=== PATIENT | male | born 1950 | race Caucasian/White ===

== ENCOUNTER → 2023-08-23 07:16 | Outpatient (REF) | payer MEDICARE, OTHER, SELFPAY ==
[2023-08-23 08:56] LABS: % Basophils 0.9 % (0-2); % Eosinophils 4.3 % (0-6); % Immature Granulocytes 0.6 % (0-0.5); % Lymphocytes 18.9 % (20.5-51.1); % Monocytes 10.3 % (1.7-9.3); Absolute Eosinophils 0.2 10^3/uL (0-0.7); Absolute Lymphocytes 0.9 10^3/uL (1.2-3.4); Absolute Monocytes 0.5 10^3/uL (0.1-0.6); Hematocrit 45.1 % (39.0-52.0); Hemoglobin 15.2 g/dL (13.0-18.0); Mean Corp Hgb Conc. 33.7 g/dL (33.0-37.0); Mean Corpuscular Hgb 30.6 pg (27.0-31.0); Mean Corpuscular Volume 90.7 fL (80.0-94.0); Nucleated Red Blood Cells % 0 % (-); Platelet Count 149 10^3/uL (130-400); Red Blood Cell Count 4.97 10^6/uL (4.70-6.10); Red Cell Dist. Width 12.7 % (11.5-14.5); White Blood Cell Count 4.7 10^3/uL (4.8-10.8)
[2023-08-23 09:18] LABS: Urine Albumin Negative (Neg - Trace); Urine Bilirubin Negative (Negative); Urine Character Clear (Clear); Urine Color Yellow; Urine Glucose Negative (Negative); Urine Ketone Negative (Negative); Urine Leukocyte Negative (Negative); Urine Nitrite Negative (Negative); Urine Occult Blood Negative (Negative); Urine Urobilinogen Negative (Neg - 1+)
[2023-08-23 09:55] LABS: Vitamin D, 25-OH*** 32.4 ng/mL (30-80)
[2023-08-23 10:17] LABS: ALT (SGPT) 19 U/L (0-50); AST (SGOT) 27 U/L (17-59); Albumin 4.7 g/dl (3.5-5.0); Alkaline Phosphatase 53 U/L (38-126); Blood Urea Nitrogen 19 mg/dl (9-20); Calcium 9.7 mg/dl (8.4-10.2); Carbon Dioxide 26 mmol/L (22-30); Chloride 103 mmol/L (98-107); Glucose 99 mg/dl (70-99); HDL Cholesterol 56 mg/dl; LDL Cholesterol, Calculated 117 mg/dl; Potassium 4.7 mmol/L (3.5-5.1); Sodium 139 mmol/L (135-145); Total Bilirubin 0.8 mg/dl (0.2-1.3); Total Cholesterol 196 mg/dl (50-199); Total Protein 7.3 g/dl (6.3-8.2); Triglyceride 115 mg/dl (10-149); Very Low Density Lipoprotein 23 mg/dl (0-30); eGFR > 60.00
[2023-08-25 15:27] LABS: PSA Total 0.9 ng/mL (0.0-4.0)
== END ==
LOC: REG 07:16
PROVIDERS: ATTENDING PHYSICIAN Internal Medicine
DX: Z79.899 Other long term (current) drug therapy (principal); N52.01 Erectile dysfunction due to arterial insufficiency; N40.1 Benign prostatic hyperplasia with lower urinary tract symptoms; E78.2 Mixed hyperlipidemia
CPT/HCPCS: 36415; 80053; 80061; 81003; 82306; 84153; 84154; 85025

== ENCOUNTER 2023-09-06 20:13 | Emergency (ER) | payer MEDICARE, OTHER, SELFPAY ==
[2023-09-06 20:22] VITALS: BP 148/85
--- NOTE | 2023-09-06 23:13 | ED.SKININJ ---
HPI-Injury
General
Chief Complaint: Skin Surface Trauma
Source: patient
Exam Limitations: none
Time Seen by Provider: 09/06/23 22:49
Travel History
Have you had any contact with someone who has COVID-19?: No
Do you have any symptoms of coronavirus? Fever > 100 degrees, chills, cough, shortness of breath, sore throat, loss of taste or smell, muscle aches, or headache?: No
History of Present Illness-Injury
Initial Injury comments:
73-year-old male presents with laceration to upper lip he sustained today. Bungee strap came loose and hit him in the lip. He noted a laceration. No other complaints at this time
Past History
Past History
ED Past Medical History: Hypercholesterolemia and Other (Chronic bursitis)
ED Past Surgical History: Orthopedic
Phy Exam
Physical Exam
Physical Exam:
General: Well-appearing male no acute respiratory distress
Skin: Half a centimeter vertically oriented laceration superficial nature midportion upper lip that crosses the vermilion border this does not go through and through.
Dentition appears well
Course
Vital Signs
Initial and Last Documented VS:
Initial Vital Signs
Temp Pulse BP Pulse Ox
98.1 F 71 148/85 95
09/06/23 20:22 09/06/23 20:22 09/06/23 20:22 09/06/23 20:22
Last Documented Vital Signs
Temp Pulse BP Pulse Ox
98.1 F 71 148/85 95
09/06/23 20:22 09/06/23 20:22 09/06/23 20:22 09/06/23 20:22
MDM/Problems Addressed
Differential Diagnosis Includes:
Laceration upper lip without evidence of dental trauma. The wound was cleansed with saline anesthetized with 1% lidocaine. Once adequate anesthesia was provided the wound was closed with 5-0 Chromic Gut sutures with careful attention made to
reapproximate the vermilion border. Wound care instructions were given patient stable for discharge
*Critical Care Note
Total Time (30-74mins, 75-104mins- exclusive of procedures): Not Applicable
ED Attending Note
-
Portions of this chart may have been created with voice recognition software.� Occasional wrong word or��sound alike� substitutions may have occurred due to the inherent limitations of voice recognition software.
Discharge Plan
Departure
Patient Disposition: Home (Routine Discharge)
Date of Disposition: 09/06/23
Time of Disposition: 23:14
Patient with high blood pressure during this ER visit?: No
Discharge Problem:
Laceration
Instructions: Laceration Repair With Stitches (DC)
Referrals:
Hammad Wilkins, DO [Family Provider] -
Activity Restrictions/Additional Instructions:
Keep clean. Apply antibacterial ointment. The sutures will dissolve on their own. Return if needed otherwise
== END 2023-09-06 23:27 | disposition home or self-care (01) ==
LOC: EMR 20:13
PROVIDERS: EMERGENCY PHYSICIAN Emergency Medicine; FAMILY PHYSICIAN Internal Medicine
DX: S01.511A Laceration without foreign body of lip, initial encounter (principal); W22.8XXA Striking against or struck by other objects, initial encounter
CPT/HCPCS: 99282; 12011

== ENCOUNTER → 2023-09-28 07:14 | Outpatient (REF) | payer MEDICARE, OTHER, SELFPAY | LOC: MRI 07:14 | PROVIDERS: ATTENDING PHYSICIAN Internal Medicine | DX: R41.3 Other amnesia (principal) | CPT/HCPCS: 70551 ==

== ENCOUNTER 2024-08-30 06:09 | Day surgery (SDC) | payer MEDICARE, OTHER, SELFPAY ==
[2024-08-23 14:11] VITALS: BMI 27.8
--- NOTE | 2024-08-30 06:39 | HP.FOC2 ---
Focused History & Physical
Chief Complaint
HPI:
Chief Complaint: Umbilical hernia
HPI / Indication for Planned Procedure: Patient is a 74-year-old male with a longstanding history of a protrusion present in his umbilical area that he has been following expectantly over the years. The hernia has been slowly increasing in size and
he now has an awareness of the hernia being present on a regular basis. There is occasional discomfort and soreness in the area after meals and at times with exertional activities. The hernia generally remains soft and reducible otherwise.
Relevant Past Medical History: Other (BPH, bilateral plantar fasciitis, hypercholesterolemia, retinal detachment left eye)
Relevant Social History: Negative
Relevant Family History: Negative
Relevant Past Surgical History: Positive for (Right inguinal hernia repair x 2, cataracts, left retinal detachment, vasectomy, excision prepatellar bursa)
Review of Systems
Review of Pertinent Systems: All Systems Negative
Medication
See Medication form for detailed medications: Yes
Medication List (including Herbals & OTC):
finasteride 5 mg tablet 5 mg PO HS 08/23/24
simvastatin 20 mg tablet 20 mg PO HS 08/23/24
tadalafil 5 mg tablet 5 mg PO HS 08/23/24
Medications Reviewed: Yes
Allergies and Reactions
Patient has Allergies: Yes
Noted Allergies and Reactions:
Allergy/AdvReac Type Severity Reaction Status Date / Time
pollen extracts Allergy Rhinitis Verified 08/23/24 08:59
Pertinent Physical Exam
All Other Systems: Negative
Head/Neck: Normal
Lungs: Normal
Heart: Normal
Abdomen: Other (Soft, reducible umbilical hernia, fascial defect likely 2 to 3 cm)
Extremities: Normal
Neurological: Normal
Diagnosis / Assessment
74-year-old male presenting for scheduled operative correction symptomatic umbilical hernia
Plan / Procedure
Open umbilical hernia pair with mesh
Anesthesia/Sedation to be done by Anesthesia Provider: Yes
--- NOTE | 2024-08-30 06:42 | W.SUR.PREOP ---
Pre-Operative Surgical Note
-
I have examined this patient prior to the performance of the scheduled procedure.
The patient's condition is unchanged from the time of the current History and
Physical and the patient is able to undergo the scheduled procedure.
[2024-08-30 06:51] VITALS: BP 142/84
[2024-08-30] MEDS: NORMOSOL-R/PLASMALYTE-A 1000 IV (07:02)
[2024-08-30] MEDS: TYLENOL 1000 MG PO (07:02)
[2024-08-30 07:07] VITALS: BMI 27.8
[2024-08-30 08:30] VITALS: BP 118/56
--- NOTE | 2024-08-30 08:43 | W.IMMPOSTOP ---
Addendum entered and electronically signed by Kai Alfaro MD 08/30/24 08:50:
#[id number]
Original Note:
Surgical Immed Post Op Note
-
Primary Surgeon: Angelina
Assisting Surgeon: Babar JOHNS
Pre-op Diagnosis: Umbilical hernia
Post-op Diagnosis: Umbilical hernia, 2.5 cm
Procedure Performed: Open umbilical herniorrhaphy with mesh; Ventralex ST 8 cm round
Anesthesia Type: MAC +1% lidocaine/0.25% Marcaine
Specimen / Cultures: None
Estimated Blood Loss: 6 mL
Complications: None immediate
Operative Findings: 2.5 cm fascial defect, reducible umbilical hernia. Underlay preperitoneal mesh repair with closure of fascia. Ventralex ST 8 cm round mesh secured with 0 PDS x 4 transfascial
[2024-08-30 08:45] VITALS: BP 107/75
[2024-08-30 09:00] VITALS: BP 109/66
== END 2024-08-30 09:25 | disposition home or self-care (01) ==
LOC: SDS 06:09
PROVIDERS: ATTENDING PHYSICIAN Surgery; FAMILY PHYSICIAN Internal Medicine
DX: K42.9 Umbilical hernia without obstruction or gangrene (principal)
CPT/HCPCS: 49591; C1781

== ENCOUNTER → 2024-10-31 09:14 | Outpatient (REF) | payer MEDICARE, OTHER, SELFPAY | LOC: PAVMRI 09:14 | PROVIDERS: ATTENDING PHYSICIAN Psychiatry & Neurology Behavioral Neurology & Neuropsychiatry; FAMILY PHYSICIAN Internal Medicine | DX: G31.84 Mild cognitive impairment of uncertain or unknown etiology (principal) | CPT/HCPCS: 70551 ==

== ENCOUNTER → 2025-01-21 10:31 | Outpatient (REF) | payer MEDICARE, OTHER, SELFPAY | LOC: PAVMRI 10:31 | PROVIDERS: ATTENDING PHYSICIAN Psychiatry & Neurology Behavioral Neurology & Neuropsychiatry; FAMILY PHYSICIAN Internal Medicine | DX: G31.84 Mild cognitive impairment of uncertain or unknown etiology (principal) | CPT/HCPCS: 70551 ==

== ENCOUNTER → 2025-03-30 11:37 | Outpatient (REF) | payer MEDICARE, OTHER, SELFPAY | LOC: PAVMRI 11:37 | PROVIDERS: ATTENDING PHYSICIAN Physician Assistant Surgical; FAMILY PHYSICIAN Internal Medicine | DX: M25.552 Pain in left hip (principal) | CPT/HCPCS: 73721 ==